=== PATIENT | female | born 1995 | race Asian ===

== ENCOUNTER 2024-12-07 19:51 | Emergency (ER) | payer OTHER ==
[~2024-12-07] VITALS: Ht 157.5 cm; Wt 63.5 kg
[2024-12-07 20:34] LABS: PLATELET COUNT (AUTO) 291 K/uL (150-450); RED BLOOD CELL COUNT(AUTO) 4.99 MIL/uL (4.0-5.2); RED CELL DISTRIBUTION WIDTH 13.2 % (11.5-15.0); WHITE BLOOD COUNT (AUTO) 9.1 K/uL (4.3-11.0)
[2024-12-07 20:43] LABS: CALCIUM, SERUM 9.1 mg/dL (8.5-10.1); CREATININE 0.8 mg/dL (0.6-1.3); SODIUM SERUM 141 mmol/L (136-145); UREA NITROGEN, BLOOD 10 mg/dL (7-18)
[2024-12-07 20:55] LABS: ASPARTATE AMINOTRANSFERASE 16 U/L (15-37); TOTAL PROTEIN, SERUM 8.1 g/dL (6.4-8.2)
[2024-12-07 21:28] LABS: APPEARANCE,URINE CLEAR (CLEAR); BLOOD, URINE TRACE-INTA Ery/uL (NEGATIVE); LEUKOCYTE ESTERASE ,URINE TRACE (NEGATIVE); NITRITE, URINE NEGATIVE (NEGATIVE); UGLUCOSE NEGATIVE (NEGATIVE)
[2024-12-07 21:30] LABS: PREGNANCY TEST URINE QUAL NEGATIVE (NEGATIVE)
[2024-12-07 21:35] LABS: AMPHETAMINE, URINE NEGATIVE (NEGATIVE); BARBITURATE, URINE NEGATIVE (NEGATIVE); BENZODIAZEPINE, URINE NEGATIVE (NEGATIVE); CANNABINOID, URINE NEGATIVE (NEGATIVE); COCCAINE, URINE NEGATIVE (NEGATIVE); OPIATE, URINE NEGATIVE (NEGATIVE)
[2024-12-07 21:38] LABS: SQUAMOUS EPITHELIAL CELL,UR Many /HPF (None Seen)
[2024-12-07 21:39] LABS: ADD URINE CULTURE YES
[2024-12-08] MEDS ORDERED: HALOPERIDOL LACTATE INJ 5 MG/ML VIAL ONE (02:41)
[2024-12-08] MEDS ORDERED: LORAZEPAM INJ 2 MG/ML VIAL ONE (02:41)
[2024-12-08] MEDS: LORAZEPAM INJ 2 MG/ML VIAL IM ONE (02:49)
[2024-12-08] MEDS: HALOPERIDOL LACTATE INJ 5 MG/ML VIAL IM ONE (02:49)
[2024-12-08 12:00] VITALS: BP 106/80; TEMP 98; O2SAT 98
[2024-12-08] MEDS ORDERED: OLANZAPINE 10 MG VIAL IM ONE (13:19)
[2024-12-08] MEDS: OLANZAPINE 10 MG VIAL IM ONE (13:21)
== END 2024-12-08 13:31 ==
LOC: ER 20:08
DX: R46.2 Strange and inexplicable behavior (principal); Z59.00 Homelessness unspecified; Z76.5 Malingerer [conscious simulation]; Z20.822 Contact with and (suspected) exposure to COVID-19; Z79.899 Other long term (current) drug therapy
CPT/HCPCS: 99285; 85025; 80048; 87086; 80076; 84703; 81001; 36415; 80143; 80307; 87426; 96372 ×2; J2060; J1200; J1630; J3490